=== PATIENT | male | born 1965 | race Caucasian/White ===

== ENCOUNTER → 2017-09-04 | Outpatient (CLI) | payer MEDICAID | END | disposition home or self-care (01) | LOC: CVU 16:06 | PROVIDERS: ATTEND Internal Medicine Cardiovascular Disease | DX: I10 Essential (primary) hypertension (principal); E66.01 Morbid (severe) obesity due to excess calories; I51.7 Cardiomegaly; L03.90 Cellulitis, unspecified | CPT/HCPCS: 93306 ==

== ENCOUNTER → 2017-10-02 | Outpatient (CLI) | payer MEDICAID ==
[~2017-10-02] MED LIST: LISI5TAB7 PO; REGADENOSON 0.4 MG/5 ML SYRINGE ONE
== END | disposition home or self-care (01) ==
LOC: CFH 12:49
PROVIDERS: ATTEND Internal Medicine Cardiovascular Disease
DX: R06.02 Shortness of breath (principal)
CPT/HCPCS: 78452; 93017; A9502; J2785

== ENCOUNTER 2017-12-03 08:31 | Day surgery (SDC) | payer MEDICAID ==
[2017-12-02 13:26] LABS: BASOPHILS # (AUTO) 0.07 x10^3/uL (0-0.1); BASOPHILS % (AUTO) 1 % (0-1); EOSINOPHILS # (AUTO) 0.29 x10^3/uL (0-0.4); EOSINOPHILS % (AUTO) 4 % (1-7); LYMPHOCYTES # (AUTO) 2.16 x10^3/uL (1-3.4); LYMPHOCYTES % (AUTO) 26 % (22-44); MD NO; MEAN CORPUSCULAR HEMOGLOBIN 31.5 pg (27.5-34.5); MEAN CORPUSCULAR HGB CONC 34.3 g/dL (33.2-36.2); MEAN CORPUSCULAR VOLUME 91.9 fL (81-97); MEAN PLATELET VOLUME 7.9 fL (7.4-10.4); MONOCYTES # (AUTO) 1.17 x10^3/uL (0.2-0.8); MONOCYTES % (AUTO) 14 % (2-9); NEUTROPHILS # (AUTO) 4.56 x10^3/uL (1.8-6.8); NEUTROPHILS % (AUTO) 55 % (42-75); PLATELET COUNT 246 x10^3/uL (130-400); RED BLOOD COUNT 4.38 x10^6/uL (4.38-5.82); RED CELL DISTRIBUTION WIDTH 14.6 % (9.4-14.8)
[2017-12-02 13:32] VITALS: BP 133/88
[2017-12-02 13:37] LABS: ANION GAP 7 mmol/L (5-15); CALCIUM 10.4 mg/dL (8.5-10.1); CHLORIDE 106 mmol/L (98-107); CREATININE 1.24 mg/dL (0.7-1.3)
[~2017-12-03] VITALS: Ht 182.9 cm; Wt 175.0 kg
[~2017-12-03 08:31] MED LIST changes: +FENO160T PO; -REGADENOSON 0.4 MG/5 ML SYRINGE ONE; +TAMS-11 PO
[2017-12-03] MEDS ORDERED: FENTANYL PF 100 MCG/2ML ONE (09:53)
[2017-12-03] MEDS ORDERED: LIDOCAINE-MPF 2% ,5ML ONE (09:54)
[2017-12-03] MEDS ORDERED: NITROGLYCERIN 5 MG/ML, 10ML ONE (09:54)
[2017-12-03] MEDS ORDERED: MIDAZOLAM 1 MG/ML, 5ML ONE (09:54)
[2017-12-03] MEDS ORDERED: BIVALIRUDIN 250 MG ONE (11:39)
[2017-12-03] MEDS ORDERED: TICAGRELOR 90 MG TABLET ONE (11:39)
[2017-12-03] MEDS ORDERED: HEPARIN 1,000 UNITS/ML, 10ML ONE (11:39)
[2017-12-03] MEDS ORDERED: VERAPAMIL 2.5 MG/ML, 2ML ONE (11:39)
[2017-12-03] MEDS ORDERED: SODIUM CHLORIDE 0.9% 1,000 ML IV SCH (12:15)
== END 2017-12-03 14:55 ==
LOC: CACL 08:31
PROVIDERS: ATTEND Internal Medicine Cardiovascular Disease
DX: I20.9 Angina pectoris, unspecified (principal); I10 Essential (primary) hypertension; G47.30 Sleep apnea, unspecified; Z87.891 Personal history of nicotine dependence; Z88.8 Allergy status to other drugs, medicaments and biological substances
CPT/HCPCS: 36415; 80048; 85025; 93458; 99156; C1769; C1894; J1644; J2250; J3010; J3490; Q9967; J0583

== ENCOUNTER → 2018-01-16 | Outpatient (CLI) | payer MEDICAID | END | disposition home or self-care (01) | LOC: RAD 10:48 | PROVIDERS: ATTEND Internal Medicine Cardiovascular Disease | DX: R06.02 Shortness of breath (principal); C44.99 Other specified malignant neoplasm of skin, unspecified; F17.200 Nicotine dependence, unspecified, uncomplicated | CPT/HCPCS: 71045; 78582; A9540; A9558 ==

== ENCOUNTER 2018-02-21 00:56 | Emergency (ER) | payer MEDICAID ==
[~2018-02-21] VITALS: Ht 182.9 cm; Wt 181.4 kg
[2018-02-21 01:03] VITALS: BP 180/83
== END 2018-02-21 02:09 | disposition home or self-care (01) ==
LOC: ED 01:59
DX: L03.115 Cellulitis of right lower limb (principal); I87.2 Venous insufficiency (chronic) (peripheral); I10 Essential (primary) hypertension; Z88.5 Allergy status to narcotic agent; Z88.1 Allergy status to other antibiotic agents
CPT/HCPCS: 99283

== ENCOUNTER 2018-06-22 21:17 | Emergency (ER) | payer MEDICAID ==
[~2018-06-22] VITALS: Ht 182.9 cm; Wt 176.2 kg
[2018-06-22 21:19] VITALS: BP 178/98
--- NOTE | 2018-06-22 22:23 | NUR ---
PT'S CHART UP FOR RECHECK
[2018-06-22] MEDS ORDERED: ASPIRIN 325 MG TABLET ONE (22:52)
[2018-06-22] MEDS ORDERED: ASPIRIN 325 MG TABLET PO ONE (23:00)
== END 2018-06-22 22:58 | disposition home or self-care (01) ==
LOC: ED 22:27
DX: I80.02 Phlebitis and thrombophlebitis of superficial vessels of left lower extremity (principal)
CPT/HCPCS: 99284

== ENCOUNTER 2019-06-24 07:48 | Emergency (ER) | payer MEDICAID ==
[~2019-06-24] VITALS: Ht 182.9 cm; Wt 175.7 kg
[2019-06-24 07:52] VITALS: BP 185/109
[2019-06-24] MEDS ORDERED: LIDOCAINE-MPF 1%, 5ML ONE (08:07)
[2019-06-24] MEDS ORDERED: LIDOCAINE-MPF 1%, 5ML INFIL ONE (08:30)
== END 2019-06-24 09:23 | disposition home or self-care (01) ==
LOC: ED 08:13
DX: L60.0 Ingrowing nail (principal); M79.675 Pain in left toe(s); M79.89 Other specified soft tissue disorders; I10 Essential (primary) hypertension
CPT/HCPCS: 11730; 99284

== ENCOUNTER 2019-11-25 07:17 | Emergency (ER) | payer MEDICAID ==
[~2019-11-25] VITALS: Ht 182.9 cm; Wt 172.3 kg
[2019-11-25 07:29] VITALS: BP 174/107
--- NOTE | 2019-11-25 08:12 | NUR ---
TELLER HEAD: PT TO ROOM FROM LOBBY, GAIT SLOW AND STEADY
[2019-11-25] MEDS ORDERED: DIPH,PERTUSS(ACELL),TET VAC/PF 0.5 ML IM-VACC ONE ×2 (08:30→08:48)
[2019-11-25] MEDS ORDERED: CEPHALEXIN 500 MG CAPSULE PO ONE (08:30)
[2019-11-25] MEDS ORDERED: CEPHALEXIN 500 MG CAPSULE ONE (08:47)
== END 2019-11-25 10:33 | disposition home or self-care (01) ==
LOC: ED 09:29
DX: L03.115 Cellulitis of right lower limb (principal); M79.89 Other specified soft tissue disorders; I10 Essential (primary) hypertension; Z86.718 Personal history of other venous thrombosis and embolism
CPT/HCPCS: 82962; 90471; 90715; 99283